=== PATIENT | male | born 2005 | race Hispanic/Latino ===

== ENCOUNTER 2025-01-15 12:06 | Emergency (ER) | payer BC, MEDICAID ==
[~2025-01-15] VITALS: Ht 170.2 cm; Wt 115.7 kg
[2025-01-15] MEDS: 0.9%NACL 1000ML 1,000 ML IV ONE (12:48)
[2025-01-15] MEDS: ketOROlac 15MG/ML VIAL (15MG/ML) IV ONE (12:48)
[2025-01-15 12:54] LABS: RAPID GROUP A STREP negative (NEGATIVE)
--- NOTE | 2025-01-15 13:01 | EKG ---
[facility] Test Date: 2025-01-15 Test Time: 12:29:08 Pat Name: PAPI DUMONT Department: [facility] Room: Gender: M Resident Intern: [id number] : 2005 Requested By: JOAQUIN JOHNS Order Number: [id number] Reading MD: Lennox Broussard Measurements Intervals [place] Rate: 116 P: 39 TX: 143 QRS: 99 QRSD: 93 T: -3 QT: 312 QTc: 434 Interpretive Statements Sinus tachycardia Electronically Signed On 01-15-2025 13:12:01 CDT by Lennox Broussard Please click the below link to view image of tracing.
[2025-01-15 13:04] LABS: INFLUENZA TYPE A Negative For Type A (NEGATIVE); INFLUENZA TYPE B Negative For Type B (NEGATIVE)
[2025-01-15 13:05] LABS: COVID19 (SARS ANTIGEN RAPID) PRESUMPTIVE NEGATIVE (NEGATIVE)
--- NOTE | 2025-01-15 13:07 | HMCIMG ---
INDICATION: fever TECHNIQUE: CHEST 1VW COMPARISON: None FINDINGS AND IMPRESSION: Prominent bilateral interstitial markings which may represent bronchitis or vascular congestion in the proper clinical setting. Cardiac silhouette is within normal limits. Mild degenerative changes of the spine. The visualized upper abdomen appears unremarkable.
[2025-01-15 13:36] LABS: HEMATOCRIT 45.1 % (42-54); MEAN CORPUSCULAR HEMOGLOBIN 29.7 pg (27.0-33.0); MEAN CORPUSCULAR HGB CONC 33.7 g/dL (32.0-36.0); MEAN CORPUSCULAR VOLUME 88.3 fL (80-100); PLATELET COUNT (AUTO) 415 K/uL (130-400); RED BLOOD CELL COUNT(AUTO) 5.11 MIL/uL (4.50-6.20); WHITE BLOOD COUNT (AUTO) 16.2 K/uL (4.8-10.8)
[2025-01-15 13:41] LABS: POTASSIUM 3.8 mmol/L (3.5-5.1)
[2025-01-15 14:06] LABS: B-TYPE NATRIURETIC PEPTIDE < 5 pg/mL (0-100)
--- NOTE | 2025-01-15 14:07 | ERN ---
ED Note History of Present Illness Stated Complaint: SOB, FEVER, COUGH Chief Complaint: Fever Time Seen by MD: 12:14 Dictation: 19-year-old male presents to the ED with mother for evaluation of fever for the past two days. Patient reports cough, body aches, shortness a breath and chest pain when he breathes, but denies any vomiting, diarrhea or any other associated symptoms at this time. Allergies: Coded Allergies: No Known Drug Allergies (Unverified Allergy, Unknown, 01/15/25) Past Medical History Past Medical History: No Pertinent History Surgical History: None Review of System Dictation Constitutional: Positive for fever, body aches Eyes: Negative for injury, pain,redness, and discharge ENT: Negative for injury,pain or swelling Cardiovascular: Positive for chest wall pain negative for palpitations, and edema Respiratory: Positive for shortness of breath and cough Abdomen/GI: Negative for abdominal pain, nausea, vomiting, diarrhea, and constipation Back: Negative for injury and pain : Negative for injury, bleeding and discharge MS/Extremity: Negative for injury and deformity Skin: Negative for rash, and discoloration Neuro: Negative for headache, weakness, numbness, tingling, and seizure Psych: Negative for suicide ideation, homicidal ideation, and hallucinations Initial Vital Sign VS Vital Signs Date Time Temp Pulse Resp B/P (MAP) Pulse Ox O2 Delivery O2 Flow Rate FiO2 01/15/25 12:08 100.9 123 24 135/75 90 Room Air 0 01/15/25 12:22 21 Physical Exam Dictation General: awake, alert, NAD Head/Face: Normocephalic, atraumatic Eyes: PERRL, EOMI, vision at baseline ENT: oral cavity clear, TMs clear, mild pharyngeal erythema Neck: Trachea midline, supple, no nuchal rigidity Cardiovascular: RRR, normal S1/S2, No MRGs, no JVD Respiratory: CTAB, no respiratory distress, No rales or wheezes Abdomen: Soft, non-tender, non-distended, normal bowel sounds, no guarding or rebound. Skin: Warm, dry, normal turgor, no rash MS/Extremity: Pulses equal, no cyanosis, neurovascular intact, FROM Results (Laboratory/Radiology) Laboratory/Radiology Laboratory Tests Test 01/15/25 12:10 01/15/25 12:38 Influenza Type A Antigen Negative For Type A Influenza Type B Antigen Negative For Type B SARS-CoV-2 Antigen (Rapid) PRESUMPTIVE NEGATIVE Group A Streptococcus Rapid negative (NEGATIVE) White Blood Count 16.2 K/uL (4.8-10.8) H Red Blood Count 5.11 MIL/uL (4.50-6.20) Hemoglobin 15.2 g/dL (14.0-18.0) Hematocrit 45.1 % (42-54) Mean Corpuscular Volume 88.3 fL (80-100) Mean Corpuscular Hemoglobin 29.7 pg (27.0-33.0) Mean Corpuscular Hemoglobin Concent 33.7 g/dL (32.0-36.0) Red Cell Distribution Width 12.0 % (11.0-15.5) Platelet Count 415 K/uL (130-400) H Mean Platelet Volume 9.5 fL (7.5-10.5) Nucleated Red Blood Cells 0.0 % (0.0-0.19) Sodium Level 136 mmol/L (136-145) Potassium Level 3.8 mmol/L (3.5-5.1) Chloride Level 100 mmol/L (101-111) L Carbon Dioxide Level 29 mmol/L (21-32) Blood Urea Nitrogen 9 mg/dL (7-18) Creatinine 1.0 mg/dL (0.5-1.3) Glomerular Filtration Rate Calc 111 mL/min (>90) Random Glucose 122 mg/dL (70-105) H Total Calcium 9.2 mg/dL (8.5-10.1) B-Type Natriuretic Peptide < 5 pg/mL (0-100) Labs Reviewed?: Yes ED Course ED Course Orders Procedure Category Date Status Time Covid19 (Sars Antigen LAB 01/15/25 Complete Rapid) 12:15 Influenza Type A & B, LAB 01/15/25 Complete Rapid 12:15 Rapid (Group A Strep) LAB 01/15/25 Complete 12:15 12 Lead Ekg Tracing- EKG 01/15/25 Resulted Technical 12:15 Chest 1vw RAD 01/15/25 Resulted 12:15 0.9%Nacl 1000ml (Ns PHA 01/15/25 Complete 1000ml) 12:30 Ketorolac PHA 01/15/25 Complete Tromethamine 15mg/Ml 12:30 Cbc W Manual Diff LAB 01/15/25 In Process 13:28 Basic Metabolic Panel LAB 01/15/25 Complete 13:28 B-Type Natriuretic LAB 01/15/25 In Process Peptide 13:28 Current Medications Medications (Trade) Dose Ordered Sig/Luisana Route PRN Reason Start Time Stop Time Status Last Admin Dose Admin Ketorolac Tromethamine (toRADol) 15 mg ONCE ONCE IV 01/15/25 12:30 01/15/25 12:31 DC 01/15/25 12:48 Sodium Chloride 1,000 ml @ 0 mls/hr ONCE ONCE IV 01/15/25 12:30 01/15/25 12:31 DC 01/15/25 12:48 Vital Signs Date Time Temp Pulse Resp B/P (MAP) Pulse Ox O2 Delivery O2 Flow Rate FiO2 01/15/25 12:22 100.9 124 22 132/72 98 Room Air* 0 21 01/15/25 12:08 100.9 123 24 135/75 90 Room Air 0 Medical Decision Making MDM MDM: Differential diagnosis: Viral syndrome, fever, influenza Risk of complication and/or morbidity or mortality of patient management: None Medications-Per medication reconciliation Need for hospitalization: Patient does not meet criteria for hospitalization. Need for emergency major/minor surgery: No There are no social concerns with this patient. Prescription drug management Prescriptions will include symptomatic care I independently interpreted the test that were performed, results were reviewed by me and considered findings on radiology if ordered. Medical management and examination interpretation discussions were had by me with other qualified healthcare professionals as indicated for the patient's care. DX & DISP Disposition: Discharge Departure Impression: Primary Impression: Acute bronchitis Condition: Stable Scripts Albuterol Sulfate (Ventolin Hfa/Proventil Hfa/Proair Hfa) 90 Mcg Puff 1 PUFF IH Q4H PRN for SHORTNESS OF BREATH for 5 Days, #1 INH 0 Refills PHARMACY TO DISPENSE 1 INHALER FOR USE Prov: JOAQUIN JOHNS MD 01/15/25 Prednisone (Prednisone) 20 Mg Tablet 20 MG PO DAILY for 5 Days, #5 TAB Prov: JOAQUIN JOHNS MD 01/15/25 Azithromycin (Azithromycin) 250 Mg Tablet 1 TAB PO AD for 5 Days, #6 TAB 0 Refills 2 the first day followed by 1 for days 2-5 Prov: JOAQUIN JOHNS MD 01/15/25 Referrals: SELF,REFERRAL (PCP) JOAQUIN JOHNS MD Jan 15, 2025 14:07
[2025-01-15] MEDS ORDERED: ALBUHFA IH (14:12)
[2025-01-15] MEDS ORDERED: PRED20TA3 PO (14:12)
[2025-01-15] MEDS ORDERED: AZIT250T9 PO (14:12)
[2025-01-15 14:34] VITALS: BP 150/85; PULSE 105; RESP 22; TEMP 99.4; O2SAT 98
[2025-01-15 14:45] LABS: BASOPHILS # (AUTO) 0.08 K/uL (0.00-0.20); BASOPHILS % (AUTO) 0.5 % (0.0-5.0); EOSINOPHILS # (AUTO) 0.24 K/uL (0.00-0.70); EOSINOPHILS % (AUTO) 1.5 % (0.0-8.0); IMMATURE GRANULOCYTE ABSOLUTE 0.11 K/uL (0-1); LYMPHOCYTES # (AUTO) 1.5 K/uL (1.0-4.8); LYMPHOCYTES % (AUTO) 9.6 % (21.0-51.0); MONOCYTES # (AUTO) 1.2 K/uL (0.1-1.0); MONOCYTES % (AUTO) 7.6 % (3.0-13.0); NEUTROPHILS # (AUTO) 12.9 K/uL (1.8-7.7); NEUTROPHILS % (AUTO) 80.1 % (40.0-77.0)
== END 2025-01-15 14:39 | disposition home or self-care (01) ==
LOC: EDH 12:06
DX: J20.9 Acute bronchitis, unspecified (principal); Z20.822 Contact with and (suspected) exposure to COVID-19
CPT/HCPCS: 99284; 96374; 71045; 87426; 80048; 83880; 85025; 87880; 87804 ×2; 36415; 93005; J1885; J7030